=== PATIENT | female | born 1985 | race Two or more races ===

== ENCOUNTER 2023-01-01 15:56 | Emergency (ER) | payer OTHER ==
[~2023-01-01] VITALS: Ht 152.4 cm; Wt 61.2 kg
== END 2023-01-01 20:17 | disposition home or self-care (01) ==
LOC: ER 15:56
DX: R52 Pain, unspecified (principal); V49.88XA Car occupant (driver) (passenger) injured in other specified transport accidents, initial encounter; Y93.89 Activity, other specified; Y92.89 Other specified places as the place of occurrence of the external cause; Y99.8 Other external cause status; Z88.1 Allergy status to other antibiotic agents